=== PATIENT | male | born 1965 | race Caucasian/White ===

== ENCOUNTER 2020-01-03 09:27 | Inpatient (IN) ==
[2020-01-03 10:21] LABS: Basophils % 0.4 %; Eosinophils # 0.1 K/mcL (0.0-0.6); Eosinophils % 0.8 %; Hemoglobin 16.2 g/dL (12.9-16.9); Immature Granulocytes % 0.2 % (0-4); Lymphocytes # 2.7 K/mcL (0.6-4.6); Lymphocytes % 28.3 %; Mean Corpuscular HGB Conc 33.8 g/dL (31.6-35.5); Mean Corpuscular Hemoglobin 31.8 pg (28.0-33.3); Mean Corpuscular Volume 94.3 fL (83.0-100.0); Mean Platelet Volume 10.8 fL (9.4-12.4); Monocytes # 0.7 K/mcL (0.0-1.3); Monocytes % 7.4 %; Platelet Count 351 K/mcL (140-400); Red Blood Count 5.09 M/mcL (4.19-5.50); Red Cell Distribution Width 11.9 % (11.5-14.5); Segmented Neutrophils % 62.9 %; White Blood Count 9.6 K/mcL (4.3-11.1)
[2020-01-03 10:43] LABS: BUN/Creatinine Ratio 29 (6-26); Blood Urea Nitrogen 17 mg/dL (6-20); Calcium 9.9 mg/dL (8.6-10.3); Carbon Dioxide 31 mEq/L (23-29); Chloride 105 mEq/L (98-107); Glucose 124 mg/dL (70-105); Osmolality,Calculated 283 (280-300); Sodium 135 mEq/L (136-145); Troponin I < 0.03 ng/mL (< 0.04); eGFR For African Americans > 60 (> 60); eGFR For Non-African Americans > 60 (> 60)
[2020-01-03] MEDS ORDERED: Isovue-370 500 ML BOTTLE IVP ONE ×2 (10:43→16:15)
[2020-01-03] MEDS ORDERED: *HR* Heparin 5,000 UNIT/ML VIAL IVP PRN ×2 (11:56)
[2020-01-03] MEDS ORDERED: *HR* Heparin 5,000 UNIT/ML VIAL IVP ONE (11:56)
[2020-01-03 12:18] LABS: INR 1.1; Prothrombin Time 12.3 Seconds (9.4-12.1)
[2020-01-03 12:21] LABS: Activated Partial Thrombo Time 31.1 Seconds (26.0-36.0)
[2020-01-03] MEDS: Heparin 25,000 UNIT/250 ML D5W 25,000 UNIT/250 ML IV.SOLN IVC SCH (12:42)
[2020-01-03] MEDS ORDERED: *HR* HYDROcodone/Acet 5/325 mg TABLET PO PRN (14:02)
[2020-01-03] MEDS ORDERED: Naloxone 0.4 MG/ML INJ IVP PRN ×2 (14:02→14:03)
[2020-01-03] MEDS ORDERED: NON-FORMULARY MEDICATION 1 EACH EACH (Testosterone Cypionate [Depo-Testosterone] 200 MG) IM SCH (14:15)
[2020-01-03] MEDS ORDERED: 0.9 % Sodium Chloride 1,000 ML IVC SCH (14:15)
[2020-01-03] MEDS ORDERED: Morphine Sulfate 2 MG/ML SYRINGE IVP ONE (16:41)
[2020-01-03] MEDS ORDERED: *HR* OxyCODONE/APAP 5/325 TABLET PO PRN (16:45)
[2020-01-03 16:53] LABS: Carcinoembryonic Antigen 1.4 ng/mL (Less than 5.0)
[2020-01-03] MEDS: Sucralfate 1 GM TABLET PO SCH (20:01)
[2020-01-03] MEDS: Acetaminophen 325 MG TABLET PO PRN (23:36)
[2020-01-04 03:29] LABS: Basophils # 0.1 K/mcL (0.0-0.2); Basophils % 0.6 %; Eosinophils # 0.1 K/mcL (0.0-0.6); Eosinophils % 1.1 %; Hematocrit 47.5 % (37.5-50.1); Hemoglobin 15.8 g/dL (12.9-16.9); Immature Granulocytes % 0.5 % (0-4); Lymphocytes # 2.8 K/mcL (0.6-4.6); Lymphocytes % 27.1 %; Mean Corpuscular HGB Conc 33.3 g/dL (31.6-35.5); Mean Corpuscular Hemoglobin 32.8 pg (28.0-33.3); Mean Corpuscular Volume 98.5 fL (83.0-100.0); Mean Platelet Volume 10.7 fL (9.4-12.4); Monocytes # 0.8 K/mcL (0.0-1.3); Monocytes % 7.8 %; Neutrophils # 6.6 K/mcL (1.6-8.9); Platelet Count 271 K/mcL (140-400); Red Blood Count 4.82 M/mcL (4.19-5.50); Red Cell Distribution Width 12.1 % (11.5-14.5); Segmented Neutrophils % 62.9 %; White Blood Count 10.4 K/mcL (4.3-11.1)
[2020-01-04 03:50] LABS: BUN/Creatinine Ratio 28 (6-26); Blood Urea Nitrogen 18 mg/dL (6-20); Calcium 9.3 mg/dL (8.6-10.3); Carbon Dioxide 29 mEq/L (23-29); Chloride 103 mEq/L (98-107); Glucose 111 mg/dL (70-105); Osmolality,Calculated 291 (280-300); Phosphorous 3.8 mg/dL (2.7-4.5); Potassium 3.8 mEq/L (3.5-5.1); Sodium 139 mEq/L (136-145); eGFR For African Americans > 60 (> 60); eGFR For Non-African Americans > 60 (> 60)
[2020-01-04] MEDS: Multivit/Ca/Min/Fe/FA 1 TAB TABLET PO SCH (08:21)
[2020-01-04] MEDS: amLODIPine 5 MG TABLET PO SCH (08:21)
[2020-01-04] MEDS: Simethicone 80 MG TAB.CHEW PO SCH (08:22)
[2020-01-04] MEDS: Acetaminophen 325 MG TABLET PO PRN (08:22)
[2020-01-04] MEDS ORDERED: NON-FORMULARY MEDICATION 1 EACH EACH (Pantoprazole Sodium [Protonix] 40 MG) PO SCH (09:00)
[2020-01-04] MEDS ORDERED: *HR* Rivaroxaban 15 MG TABLET PO SCH ×2 (10:45→10:46)
[2020-01-04] MEDS: *HR* Enoxaparin 100 MG/ML SYRINGE SQ SCH ×2 (12:58→22:48)
[2020-01-04] MEDS: Psyllium 1 PACKET POWD.PACK PO SCH ×3 (12:58→22:47)
[2020-01-04] MEDS: Ondansetron 4 MG/2 ML VIAL IVP PRN (15:44)
[2020-01-04] MEDS ORDERED: hydrOXYzine pamoate 25 MG CAPSULE PO PRN (16:03)
[2020-01-04] MEDS ORDERED: Warfarin perPT PO PRN (18:00)
[2020-01-04] MEDS ORDERED: *HR* Warfarin 5 MG TABLET PO SCH (18:00)
[2020-01-04] MEDS ORDERED: *HR* Warfarin 5 MG TABLET PO ONE (18:00)
[2020-01-04] MEDS: Sucralfate 1 GM TABLET PO SCH (22:48)
[2020-01-05] MEDS ORDERED: Melatonin 3 MG TABLET PO ONE (03:07)
[2020-01-05 03:33] LABS: Basophils # 0.1 K/mcL (0.0-0.2); Basophils % 0.6 %; Eosinophils # 0.1 K/mcL (0.0-0.6); Eosinophils % 1.1 %; Hematocrit 47.5 % (37.5-50.1); Hemoglobin 15.9 g/dL (12.9-16.9); Immature Granulocytes % 0.3 % (0-4); Lymphocytes # 2.7 K/mcL (0.6-4.6); Lymphocytes % 29.9 %; Mean Corpuscular HGB Conc 33.5 g/dL (31.6-35.5); Mean Corpuscular Hemoglobin 32.9 pg (28.0-33.3); Mean Corpuscular Volume 98.1 fL (83.0-100.0); Mean Platelet Volume 11.3 fL (9.4-12.4); Monocytes # 0.8 K/mcL (0.0-1.3); Monocytes % 8.8 %; Neutrophils # 5.3 K/mcL (1.6-8.9); Platelet Count 300 K/mcL (140-400); Red Blood Count 4.84 M/mcL (4.19-5.50); Red Cell Distribution Width 12.1 % (11.5-14.5); Segmented Neutrophils % 59.3 %; White Blood Count 8.9 K/mcL (4.3-11.1)
[2020-01-05 03:41] LABS: INR 1.1; Prothrombin Time 12.6 Seconds (9.4-12.1)
[2020-01-05 03:50] LABS: BUN/Creatinine Ratio 24 (6-26); Blood Urea Nitrogen 14 mg/dL (6-20); Calcium 9.2 mg/dL (8.6-10.3); Carbon Dioxide 29 mEq/L (23-29); Chloride 102 mEq/L (98-107); Glucose 99 mg/dL (70-105); Osmolality,Calculated 291 (280-300); Potassium 3.6 mEq/L (3.5-5.1); Sodium 140 mEq/L (136-145); eGFR For African Americans > 60 (> 60); eGFR For Non-African Americans > 60 (> 60)
[2020-01-05] MEDS: Acetaminophen 325 MG TABLET PO PRN ×2 (06:42→11:52)
[2020-01-05] MEDS: Psyllium 1 PACKET POWD.PACK PO SCH ×3 (08:46→20:01)
[2020-01-05] MEDS: Simethicone 80 MG TAB.CHEW PO SCH (08:47)
[2020-01-05] MEDS: *HR* Enoxaparin 100 MG/ML SYRINGE SQ SCH ×2 (08:48→20:03)
[2020-01-05] MEDS: Multivit/Ca/Min/Fe/FA 1 TAB TABLET PO SCH (08:48)
[2020-01-05] MEDS: amLODIPine 5 MG TABLET PO SCH (08:48)
[2020-01-05] MEDS: atenoloL 50 MG TABLET PO SCH (08:48)
[2020-01-05] MEDS: Ondansetron 4 MG/2 ML VIAL IVP PRN (09:05)
[2020-01-05] MEDS: Sucralfate 1 GM TABLET PO PRN ×2 (11:53→17:25)
[2020-01-05] MEDS ORDERED: traZODone 50 MG TABLET PO PRN (16:31)
[2020-01-05] MEDS ORDERED: *HR* Warfarin 5 MG TABLET PO ONE (18:00)
[2020-01-05] MEDS: Heparin 25,000 UNIT/250 ML D5W 25,000 UNIT/250 ML IV.SOLN IVC SCH (19:52)
[2020-01-05] MEDS: Sucralfate 1 GM TABLET PO SCH (20:02)
[2020-01-05] MEDS ORDERED: amLODIPine 5 MG TABLET PO SCH (21:00)
[2020-01-05] MEDS ORDERED: Melatonin 3 MG TABLET PO SCH (21:00)
[2020-01-06 02:33] LABS: Basophils # 0.1 K/mcL (0.0-0.2); Basophils % 0.5 %; Eosinophils # 0.1 K/mcL (0.0-0.6); Eosinophils % 0.9 %; Hematocrit 47.4 % (37.5-50.1); Immature Granulocytes % 0.3 % (0-4); Lymphocytes # 2.4 K/mcL (0.6-4.6); Lymphocytes % 24.6 %; Mean Corpuscular HGB Conc 31.6 g/dL (31.6-35.5); Mean Corpuscular Hemoglobin 31.1 pg (28.0-33.3); Mean Corpuscular Volume 98.3 fL (83.0-100.0); Mean Platelet Volume 10.8 fL (9.4-12.4); Monocytes # 0.8 K/mcL (0.0-1.3); Monocytes % 8.1 %; Neutrophils # 6.3 K/mcL (1.6-8.9); Platelet Count 307 K/mcL (140-400); Red Blood Count 4.82 M/mcL (4.19-5.50); Red Cell Distribution Width 12.2 % (11.5-14.5); Segmented Neutrophils % 65.6 %; White Blood Count 9.7 K/mcL (4.3-11.1)
[2020-01-06 02:37] LABS: INR 1.2; Prothrombin Time 13.3 Seconds (9.4-12.1)
[2020-01-06 02:52] LABS: BUN/Creatinine Ratio 25 (6-26); Blood Urea Nitrogen 16 mg/dL (6-20); Calcium 9.4 mg/dL (8.6-10.3); Carbon Dioxide 32 mEq/L (23-29); Chloride 102 mEq/L (98-107); Glucose 94 mg/dL (70-105); Osmolality,Calculated 293 (280-300); Potassium 3.9 mEq/L (3.5-5.1); Sodium 141 mEq/L (136-145); eGFR For African Americans > 60 (> 60); eGFR For Non-African Americans > 60 (> 60)
[2020-01-06] MEDS: Acetaminophen 325 MG TABLET PO PRN (04:43)
[2020-01-06 07:55] VITALS: BP 144/88
[2020-01-06] MEDS: Psyllium 1 PACKET POWD.PACK PO SCH (11:04)
[2020-01-06] MEDS: *HR* Enoxaparin 100 MG/ML SYRINGE SQ SCH (11:22)
[2020-01-06] MEDS: Multivit/Ca/Min/Fe/FA 1 TAB TABLET PO SCH (11:23)
[2020-01-06] MEDS: Simethicone 80 MG TAB.CHEW PO SCH (11:23)
[2020-01-06] MEDS: atenoloL 50 MG TABLET PO SCH (11:24)
[2020-01-06] MEDS: Sucralfate 1 GM TABLET PO PRN (11:39)
[2020-01-06] MEDS ORDERED: hydrOXYzine pamoate 25 MG CAPSULE PO PRN (17:36)
[2020-01-06] MEDS ORDERED: *HR* Warfarin 7.5 MG TABLET PO ONE (18:00)
== END 2020-01-06 14:05 | disposition home or self-care (01) | DRG 175 ==
LOC: 3ANU 09:27 → EMEROOARM 09:27 → SUATTDRO 15:42 → 3ANU 16:10 → SUATTDRO 01-04 13:39
PROVIDERS: ADMIT Internal Medicine; ATTEND Internal Medicine

== ENCOUNTER 2020-01-18 06:01 | Inpatient (IN) ==
[2020-01-18] MEDS ORDERED: Ringers Solution, Lactated 1,000 ML IVC SCH (06:30)
[2020-01-18] MEDS ORDERED: *HR* FentaNYL (PF) 100 MCG/2 ML VIAL ONE (07:00)
[2020-01-18] MEDS ORDERED: *HR* Propofol 200 MG/20 ML VIAL IVP ONE ×4 (07:00→13:04)
[2020-01-18] MEDS ORDERED: *HR* Midazolam HCl 2 MG/2 ML VIAL ONE ×2 (07:00→12:11)
[2020-01-18] MEDS ORDERED: Ondansetron 4 MG/2 ML VIAL ONE (07:01)
[2020-01-18] MEDS ORDERED: Dexamethasone 4 MG/ML VIAL ONE (07:01)
[2020-01-18] MEDS ORDERED: *HR* Rocuronium Bromide 50 MG/5 ML VIAL ONE ×2 (07:01→08:57)
[2020-01-18] MEDS ORDERED: Lidocaine -MPF 2% 2 ML VIAL ONE (07:01)
[2020-01-18] MEDS ORDERED: Lidocaine HCL 4 ML Topical Solution (Laryng-O-Jet Kit Sterile Pak) TP ONE (07:01)
[2020-01-18] MEDS ORDERED: Bupivacaine/EPI 1:200k 0.5%PF 10 ML VIAL ONE (07:13)
[2020-01-18] MEDS ORDERED: Ondansetron 4 MG/2 ML VIAL IVP ONE (07:16)
[2020-01-18] MEDS ORDERED: *HR* OxyCODONE Immed Rel 5 MG TABLET PO PRN (07:16)
[2020-01-18] MEDS ORDERED: *HR* HYDROmorphone PF 0.5 MG/0.5 ML SYRINGE IVP PRN (07:16)
[2020-01-18] MEDS ORDERED: *HR* Remifentanil 1 MG VIAL IVP ONE ×2 (07:24→10:20)
[2020-01-18] MEDS ORDERED: cefOXitin 2,000 MG in Water for inj. (sterile) 20 ML IVP ONE (07:31)
[2020-01-18] MEDS ORDERED: *HR* PHENYLEPHRINE 1,000 MCG/10 ML SYRINGE IVP ONE ×2 (08:01→09:08)
[2020-01-18] MEDS ORDERED: Albumin Human 5% 0 GM/0 ML IV.SOLN ONE (09:32)
[2020-01-18] MEDS ORDERED: Albumin Human 5% 12.5 GM/250 ML IV.SOLN ONE ×2 (10:46→10:49)
[2020-01-18] MEDS ORDERED: *HR* Labetalol 20 MG/4 ML SYRINGE IVP ONE (12:55)
[2020-01-18] MEDS ORDERED: Naloxone 0.4 MG/ML INJ IVP PRN (14:42)
[2020-01-18] MEDS: *HR* FentaNYL (PF) 100 MCG/2 ML VIAL IVP PRN ×2 (15:37→18:53)
[2020-01-18] MEDS: 0.9 % Sodium Chloride 1,000 ML IVC SCH (15:37)
[2020-01-18] MEDS: cefOXitin 1,000 MG in 0.9 % Sodium Chloride Mini Bag 100 ML IVPB SCH ×2 (16:21→23:54)
[2020-01-18 16:40] LABS: Hematocrit 45.8 % (37.5-50.1); Mean Corpuscular HGB Conc 32.8 g/dL (31.6-35.5); Mean Corpuscular Hemoglobin 31.9 pg (28.0-33.3); Mean Corpuscular Volume 97.4 fL (83.0-100.0); Platelet Count 327 K/mcL (140-400); Red Cell Distribution Width 12.5 % (11.5-14.5); White Blood Count 19.2 K/mcL (4.3-11.1)
[2020-01-18] MEDS: Ketorolac 30 MG/ML VIAL IVP SCH ×2 (16:53→23:56)
[2020-01-18] MEDS: Acetaminophen IV 1,000 MG/100 ML INFUS..BTL IVPB SCH ×2 (17:01→23:58)
[2020-01-18 17:23] LABS: Alanine Aminotransferase 50 Units/L (7-52); Albumin 4.2 g/dL (3.5-5.7); Albumin/Globulin Ratio 2.1 (1.1-2.2); Alkaline Phosphatase 43 Units/L (34-104); Aspartate Amino Transferase 27 Units/L (13-39); BUN/Creatinine Ratio 28 (6-26); Bilirubin,Total 0.6 mg/dL (0.3-1.0); Blood Urea Nitrogen 21 mg/dL (6-20); Calcium 9.7 mg/dL (8.6-10.3); Carbon Dioxide 30 mEq/L (23-29); Chloride 100 mEq/L (98-107); Glucose 132 mg/dL (70-105); Osmolality,Calculated 293 (280-300); Potassium 4.6 mEq/L (3.5-5.1); Sodium 139 mEq/L (136-145); Total Protein 6.2 g/dL (6.4-8.9); Troponin I < 0.03 ng/mL (< 0.04); eGFR For African Americans > 60 (> 60); eGFR For Non-African Americans > 60 (> 60)
[2020-01-18] MEDS: *HR* OxyCODONE Immed Rel 5 MG TABLET PO PRN (19:29)
[2020-01-19] MEDS: *HR* OxyCODONE Immed Rel 5 MG TABLET PO PRN ×4 (02:24→19:33)
[2020-01-19 05:15] LABS: Basophils % 0.1 %; Eosinophils % 0.2 %; Hematocrit 40.8 % (37.5-50.1); Immature Granulocytes % 0.3 % (0-4); Lymphocytes # 2.6 K/mcL (0.6-4.6); Mean Corpuscular HGB Conc 31.9 g/dL (31.6-35.5); Mean Corpuscular Hemoglobin 31.5 pg (28.0-33.3); Mean Corpuscular Volume 98.8 fL (83.0-100.0); Mean Platelet Volume 11.3 fL (9.4-12.4); Monocytes # 1.3 K/mcL (0.0-1.3); Monocytes % 11.3 %; Neutrophils # 7.3 K/mcL (1.6-8.9); Platelet Count 280 K/mcL (140-400); Red Blood Count 4.13 M/mcL (4.19-5.50); Red Cell Distribution Width 12.7 % (11.5-14.5); Segmented Neutrophils % 65.1 %; White Blood Count 11.1 K/mcL (4.3-11.1)
[2020-01-19 05:33] LABS: BUN/Creatinine Ratio 36 (6-26); Blood Urea Nitrogen 21 mg/dL (6-20); Calcium 9.2 mg/dL (8.6-10.3); Carbon Dioxide 30 mEq/L (23-29); Chloride 104 mEq/L (98-107); Glucose 90 mg/dL (70-105); Osmolality,Calculated 293 (280-300); Potassium 4.1 mEq/L (3.5-5.1); Sodium 140 mEq/L (136-145); eGFR For African Americans > 60 (> 60); eGFR For Non-African Americans > 60 (> 60)
[2020-01-19] MEDS: Acetaminophen IV 1,000 MG/100 ML INFUS..BTL IVPB SCH ×4 (06:27→23:27)
[2020-01-19] MEDS: Ketorolac 30 MG/ML VIAL IVP SCH ×4 (06:27→23:26)
[2020-01-19] MEDS: cefOXitin 1,000 MG in 0.9 % Sodium Chloride Mini Bag 100 ML IVPB SCH (07:56)
[2020-01-19] MEDS ORDERED: *HR* Heparin 5,000 UNIT/ML VIAL IVP PRN ×2 (08:12)
[2020-01-19] MEDS ORDERED: *HR* Heparin 5,000 UNIT/ML VIAL IVP ONE (08:12)
[2020-01-19 08:58] LABS: Heparin anti-factor XA UFH 0.05 IU/mL (0.30-0.70)
[2020-01-19 09:01] LABS: INR 1.1
[2020-01-19 09:03] LABS: Hematocrit 42.3 % (37.5-50.1); Hemoglobin 13.8 g/dL (12.9-16.9); Mean Corpuscular HGB Conc 32.6 g/dL (31.6-35.5); Mean Corpuscular Hemoglobin 32.7 pg (28.0-33.3); Mean Corpuscular Volume 100.2 fL (83.0-100.0); Mean Platelet Volume 10.9 fL (9.4-12.4); Platelet Count 276 K/mcL (140-400); Red Blood Count 4.22 M/mcL (4.19-5.50); Red Cell Distribution Width 12.7 % (11.5-14.5); White Blood Count 11.7 K/mcL (4.3-11.1)
[2020-01-19] MEDS: Heparin 25,000 UNIT/250 ML D5W 25,000 UNIT/250 ML IV.SOLN IVC SCH (09:10)
[2020-01-19] MEDS ORDERED: *HR* Heparin 5,000 UNIT/ML VIAL SQ SCH (12:06)
[2020-01-19] MEDS: 0.9 % Sodium Chloride 1,000 ML IVC SCH ×2 (17:30)
[2020-01-19] MEDS: Ondansetron 4 MG/2 ML VIAL IVP PRN (19:33)
[2020-01-20 00:29] LABS: Hematocrit 39.3 % (37.5-50.1); Hemoglobin 12.5 g/dL (12.9-16.9); Mean Corpuscular HGB Conc 31.8 g/dL (31.6-35.5); Mean Corpuscular Hemoglobin 32.8 pg (28.0-33.3); Mean Corpuscular Volume 103.1 fL (83.0-100.0); Mean Platelet Volume 10.8 fL (9.4-12.4); Platelet Count 230 K/mcL (140-400); Red Blood Count 3.81 M/mcL (4.19-5.50); Red Cell Distribution Width 12.8 % (11.5-14.5); White Blood Count 12.5 K/mcL (4.3-11.1)
[2020-01-20] MEDS: *HR* OxyCODONE Immed Rel 5 MG TABLET PO PRN ×5 (00:32→21:19)
[2020-01-20 00:44] LABS: BUN/Creatinine Ratio 39 (6-26); Blood Urea Nitrogen 22 mg/dL (6-20); Calcium 9.1 mg/dL (8.6-10.3); Carbon Dioxide 29 mEq/L (23-29); Chloride 105 mEq/L (98-107); Glucose 95 mg/dL (70-105); Osmolality,Calculated 291 (280-300); Potassium 3.9 mEq/L (3.5-5.1); Sodium 139 mEq/L (136-145); eGFR For African Americans > 60 (> 60); eGFR For Non-African Americans > 60 (> 60)
[2020-01-20] MEDS: Ketorolac 30 MG/ML VIAL IVP SCH ×4 (05:10→23:21)
[2020-01-20] MEDS: 0.9 % Sodium Chloride 1,000 ML IVC SCH ×3 (05:10→17:24)
[2020-01-20] MEDS: Acetaminophen IV 1,000 MG/100 ML INFUS..BTL IVPB SCH ×4 (05:11→23:20)
[2020-01-20] MEDS: Heparin 25,000 UNIT/250 ML D5W 25,000 UNIT/250 ML IV.SOLN IVC SCH (08:15)
[2020-01-20] MEDS: amLODIPine 5 MG TABLET PO SCH ×2 (11:42→21:19)
[2020-01-20] MEDS: Piperacillin/Tazobactam 3.375 GM in 0.9 % Sodium Chloride Mini Bag 100 ML IVPB SCH (18:48)
[2020-01-20] MEDS ORDERED: *HR* LORazepam 0.5 MG TABLET PO ONE (22:57)
[2020-01-21] MEDS: *HR* OxyCODONE Immed Rel 5 MG TABLET PO PRN ×2 (03:51→19:57)
[2020-01-21] MEDS ORDERED: *HR* LORazepam 0.5 MG TABLET PO ONE (05:02)
[2020-01-21] MEDS: Ketorolac 30 MG/ML VIAL IVP SCH ×3 (05:15→17:45)
[2020-01-21] MEDS: 0.9 % Sodium Chloride 1,000 ML IVC SCH ×2 (05:16→19:00)
[2020-01-21] MEDS: Piperacillin/Tazobactam 3.375 GM in 0.9 % Sodium Chloride Mini Bag 100 ML IVPB SCH ×2 (05:16→17:45)
[2020-01-21] MEDS: Acetaminophen IV 1,000 MG/100 ML INFUS..BTL IVPB SCH ×4 (05:17→23:28)
[2020-01-21 05:29] LABS: Hematocrit 36.3 % (37.5-50.1); Hemoglobin 11.3 g/dL (12.9-16.9); Mean Corpuscular HGB Conc 31.1 g/dL (31.6-35.5); Mean Corpuscular Hemoglobin 31.8 pg (28.0-33.3); Mean Corpuscular Volume 102.3 fL (83.0-100.0); Mean Platelet Volume 11.2 fL (9.4-12.4); Platelet Count 295 K/mcL (140-400); Red Blood Count 3.55 M/mcL (4.19-5.50); Red Cell Distribution Width 12.7 % (11.5-14.5); White Blood Count 15.2 K/mcL (4.3-11.1)
[2020-01-21] MEDS: Heparin 25,000 UNIT/250 ML D5W 25,000 UNIT/250 ML IV.SOLN IVC SCH ×2 (05:37→21:47)
[2020-01-21 05:47] LABS: BUN/Creatinine Ratio 47 (6-26); Blood Urea Nitrogen 22 mg/dL (6-20); Calcium 9.7 mg/dL (8.6-10.3); Carbon Dioxide 31 mEq/L (23-29); Chloride 104 mEq/L (98-107); Glucose 108 mg/dL (70-105); Osmolality,Calculated 298 (280-300); Potassium 3.9 mEq/L (3.5-5.1); Sodium 142 mEq/L (136-145); eGFR For African Americans > 60 (> 60); eGFR For Non-African Americans > 60 (> 60)
[2020-01-21] MEDS ORDERED: Azithromycin 250 MG TABLET PO SCH (07:15)
[2020-01-21] MEDS ORDERED: *HR* FentaNYL (PF) 100 MCG/2 ML VIAL EP ONE (07:46)
[2020-01-21] MEDS: Dexmedetomidine HCl 400 MCG/100 ML MLS IVC SCH ×2 (08:33→22:03)
[2020-01-21] MEDS ORDERED: Isovue-370 500 ML BOTTLE PO ONE (09:12)
[2020-01-21] MEDS ORDERED: Lidocaine Viscous Oral Soln 15 ML SOLUTION ONE (09:36)
[2020-01-21] MEDS: atenoloL 50 MG TABLET PO SCH (11:55)
[2020-01-21] MEDS: Azithromycin 500 MG in 0.9 % Sodium Chloride 250 ML IVPB SCH (12:04)
[2020-01-21] MEDS ORDERED: Gadolinium Contrast Agent (WT Based) IV PRN (14:18)
[2020-01-21 14:21] LABS: Appearance of Body Fluid Cloudy (Clear); Volume of Body Fluid 10 mL
[2020-01-21] MEDS ORDERED: *HR* Heparin 5,000 UNIT/ML VIAL IVP PRN ×2 (19:45)
[2020-01-21] MEDS: amLODIPine 5 MG TABLET PO SCH (19:57)
[2020-01-22] MEDS: *HR* OxyCODONE Immed Rel 5 MG TABLET PO PRN ×4 (03:09→21:18)
[2020-01-22 05:09] LABS: Basophils % 0.4 %; Eosinophils # 0.1 K/mcL (0.0-0.6); Eosinophils % 1.6 %; Hematocrit 26.9 % (37.5-50.1); Immature Granulocytes % 0.2 % (0-4); Lymphocytes # 1.5 K/mcL (0.6-4.6); Lymphocytes % 18.4 %; Mean Corpuscular HGB Conc 31.6 g/dL (31.6-35.5); Mean Corpuscular Hemoglobin 32.9 pg (28.0-33.3); Mean Corpuscular Volume 104.3 fL (83.0-100.0); Mean Platelet Volume 11.1 fL (9.4-12.4); Monocytes # 0.6 K/mcL (0.0-1.3); Monocytes % 7.5 %; Neutrophils # 5.9 K/mcL (1.6-8.9); Platelet Count 208 K/mcL (140-400); Red Blood Count 2.58 M/mcL (4.19-5.50); Red Cell Distribution Width 12.8 % (11.5-14.5); Segmented Neutrophils % 71.9 %; White Blood Count 8.1 K/mcL (4.3-11.1)
[2020-01-22 05:10] LABS: Hemoglobin 8.5 g/dL (12.9-16.9)
[2020-01-22] MEDS: Acetaminophen IV 1,000 MG/100 ML INFUS..BTL IVPB SCH ×3 (05:27→17:58)
[2020-01-22 05:29] LABS: BUN/Creatinine Ratio 54 (6-26); Blood Urea Nitrogen 25 mg/dL (6-20); Calcium 8.6 mg/dL (8.6-10.3); Carbon Dioxide 31 mEq/L (23-29); Chloride 107 mEq/L (98-107); Glucose 103 mg/dL (70-105); Osmolality,Calculated 299 (280-300); Potassium 3.9 mEq/L (3.5-5.1); Sodium 142 mEq/L (136-145); eGFR For African Americans > 60 (> 60); eGFR For Non-African Americans > 60 (> 60)
[2020-01-22] MEDS: Piperacillin/Tazobactam 3.375 GM in 0.9 % Sodium Chloride Mini Bag 100 ML IVPB SCH ×2 (05:32→17:45)
[2020-01-22] MEDS: 0.9 % Sodium Chloride 1,000 ML IVC SCH ×2 (06:52→19:33)
[2020-01-22] MEDS: atenoloL 50 MG TABLET PO SCH (08:45)
[2020-01-22 11:13] LABS: Hematocrit 26.5 % (37.5-50.1); Hemoglobin 8.7 g/dL (12.9-16.9)
[2020-01-22] MEDS: Azithromycin 500 MG in 0.9 % Sodium Chloride 250 ML IVPB SCH (12:11)
[2020-01-22] MEDS: Heparin 25,000 UNIT/250 ML D5W 25,000 UNIT/250 ML IV.SOLN IVC SCH ×2 (14:50→20:02)
[2020-01-22] MEDS ORDERED: *HR* Warfarin 5 MG TABLET PO ONE (18:30)
[2020-01-22] MEDS: Dexmedetomidine HCl 400 MCG/100 ML MLS IVC SCH (19:32)
[2020-01-22] MEDS: amLODIPine 5 MG TABLET PO SCH (21:18)
[2020-01-23] MEDS: Acetaminophen IV 1,000 MG/100 ML INFUS..BTL IVPB SCH ×2 (00:46→05:21)
[2020-01-23] MEDS: Piperacillin/Tazobactam 3.375 GM in 0.9 % Sodium Chloride Mini Bag 100 ML IVPB SCH ×2 (05:21→17:26)
[2020-01-23 05:49] LABS: Basophils % 0.4 %; Eosinophils # 0.2 K/mcL (0.0-0.6); Eosinophils % 2.5 %; Hematocrit 24.3 % (37.5-50.1); Hemoglobin 7.8 g/dL (12.9-16.9); Immature Granulocytes % 0.4 % (0-4); Lymphocytes # 1.6 K/mcL (0.6-4.6); Lymphocytes % 23.8 %; Mean Corpuscular HGB Conc 32.1 g/dL (31.6-35.5); Mean Corpuscular Hemoglobin 33.1 pg (28.0-33.3); Monocytes # 0.6 K/mcL (0.0-1.3); Neutrophils # 4.5 K/mcL (1.6-8.9); Platelet Count 224 K/mcL (140-400); Red Blood Count 2.36 M/mcL (4.19-5.50); Red Cell Distribution Width 12.6 % (11.5-14.5); Segmented Neutrophils % 64.9 %; White Blood Count 6.9 K/mcL (4.3-11.1)
[2020-01-23 05:57] LABS: INR 1.2; Prothrombin Time 13.5 Seconds (9.4-12.1)
[2020-01-23 06:08] LABS: BUN/Creatinine Ratio 58 (6-26); Blood Urea Nitrogen 21 mg/dL (6-20); Calcium 8.3 mg/dL (8.6-10.3); Carbon Dioxide 32 mEq/L (23-29); Chloride 104 mEq/L (98-107); Glucose 99 mg/dL (70-105); Osmolality,Calculated 291 (280-300); Potassium 3.9 mEq/L (3.5-5.1); Sodium 139 mEq/L (136-145); eGFR For African Americans > 60 (> 60); eGFR For Non-African Americans > 60 (> 60)
[2020-01-23] MEDS: atenoloL 50 MG TABLET PO SCH (08:30)
[2020-01-23] MEDS: Dexmedetomidine HCl 400 MCG/100 ML MLS IVC SCH ×2 (08:31→22:09)
[2020-01-23] MEDS: 0.9 % Sodium Chloride 1,000 ML IVC SCH (08:41)
[2020-01-23] MEDS ORDERED: Furosemide 40 MG/4 ML VIAL ONE (08:46)
[2020-01-23] MEDS: Furosemide 40 MG/4 ML VIAL IVP ONE (08:50)
[2020-01-23] MEDS: Azithromycin 250 MG TABLET PO SCH (12:13)
[2020-01-23] MEDS: Heparin 25,000 UNIT/250 ML D5W 25,000 UNIT/250 ML IV.SOLN IVC SCH (15:49)
[2020-01-23 16:52] LABS: Hemoglobin 7.9 g/dL (12.9-16.9)
[2020-01-23] MEDS: *HR* OxyCODONE Immed Rel 5 MG TABLET PO PRN ×2 (17:32→20:32)
[2020-01-23] MEDS ORDERED: *HR* Warfarin 5 MG TABLET PO ONE (18:00)
[2020-01-23] MEDS ORDERED: Warfarin perPT PO PRN (18:00)
[2020-01-23] MEDS: amLODIPine 5 MG TABLET PO SCH (20:32)
[2020-01-24] MEDS: *HR* OxyCODONE Immed Rel 5 MG TABLET PO PRN ×4 (03:41→20:25)
[2020-01-24] MEDS: Heparin 25,000 UNIT/250 ML D5W 25,000 UNIT/250 ML IV.SOLN IVC SCH ×3 (05:01→12:30)
[2020-01-24] MEDS: Piperacillin/Tazobactam 3.375 GM in 0.9 % Sodium Chloride Mini Bag 100 ML IVPB SCH ×3 (05:46→19:32)
[2020-01-24 06:41] LABS: Basophils % 0.4 %; Eosinophils # 0.1 K/mcL (0.0-0.6); Eosinophils % 1.7 %; Hematocrit 20.6 % (37.5-50.1); Hemoglobin 6.9 g/dL (12.9-16.9); Immature Granulocytes % 1.3 % (0-4); Lymphocytes # 1.7 K/mcL (0.6-4.6); Lymphocytes % 22.9 %; Mean Corpuscular HGB Conc 33.5 g/dL (31.6-35.5); Mean Corpuscular Hemoglobin 33.3 pg (28.0-33.3); Mean Corpuscular Volume 99.5 fL (83.0-100.0); Mean Platelet Volume 10.7 fL (9.4-12.4); Monocytes # 0.7 K/mcL (0.0-1.3); Neutrophils # 4.9 K/mcL (1.6-8.9); Platelet Count 251 K/mcL (140-400); Red Blood Count 2.07 M/mcL (4.19-5.50); Red Cell Distribution Width 12.6 % (11.5-14.5); Segmented Neutrophils % 64.7 %; White Blood Count 7.5 K/mcL (4.3-11.1)
[2020-01-24 06:50] LABS: INR 2.2
[2020-01-24 07:03] LABS: BUN/Creatinine Ratio 51 (6-26); Blood Urea Nitrogen 21 mg/dL (6-20); Calcium 8.3 mg/dL (8.6-10.3); Carbon Dioxide 32 mEq/L (23-29); Chloride 99 mEq/L (98-107); Glucose 106 mg/dL (70-105); Osmolality,Calculated 287 (280-300); Potassium 3.8 mEq/L (3.5-5.1); Sodium 137 mEq/L (136-145); eGFR For African Americans > 60 (> 60); eGFR For Non-African Americans > 60 (> 60)
[2020-01-24] MEDS: atenoloL 50 MG TABLET PO SCH (07:59)
[2020-01-24] MEDS ORDERED: *HR* Heparin 5,000 UNIT/ML VIAL IVP PRN ×4 (08:56→18:00)
[2020-01-24] MEDS ORDERED: 0.9 % Sodium Chloride 250 ML ONE (09:55)
[2020-01-24] MEDS: Dexmedetomidine HCl 400 MCG/100 ML MLS IVC SCH (11:48)
[2020-01-24] MEDS: Sucralfate 1 GM TABLET PO SCH ×3 (11:49→20:26)
[2020-01-24] MEDS: Azithromycin 250 MG TABLET PO SCH (11:49)
[2020-01-24] MEDS: Furosemide 20 MG/2 ML VIAL IVP SCH ×2 (12:20→19:33)
[2020-01-24 15:42] LABS: Basophils % 0.4 %; Eosinophils # 0.1 K/mcL (0.0-0.6); Eosinophils % 1.7 %; Hematocrit 23.5 % (37.5-50.1); Hemoglobin 7.8 g/dL (12.9-16.9); Lymphocytes # 2.2 K/mcL (0.6-4.6); Lymphocytes % 29.1 %; Mean Corpuscular HGB Conc 33.2 g/dL (31.6-35.5); Mean Corpuscular Hemoglobin 32.5 pg (28.0-33.3); Mean Corpuscular Volume 97.9 fL (83.0-100.0); Mean Platelet Volume 11.2 fL (9.4-12.4); Monocytes # 0.8 K/mcL (0.0-1.3); Monocytes % 10.3 %; Neutrophils # 4.2 K/mcL (1.6-8.9); Platelet Count 253 K/mcL (140-400); Red Cell Distribution Width 13.2 % (11.5-14.5); Segmented Neutrophils % 56.5 %; White Blood Count 7.5 K/mcL (4.3-11.1)
[2020-01-24] MEDS: *HR* LORazepam 0.5 MG TABLET PO PRN ×2 (17:13→20:25)
[2020-01-24] MEDS: Pantoprazole 40 MG VIAL IVP SCH (17:13)
[2020-01-24] MEDS ORDERED: Heparin 25,000 UNIT/250 ML D5W 25,000 UNIT/250 ML IV.SOLN IVC SCH (18:00)
[2020-01-24] MEDS: amLODIPine 5 MG TABLET PO SCH (19:33)
[2020-01-25] MEDS: *HR* OxyCODONE Immed Rel 5 MG TABLET PO PRN ×4 (01:26→20:49)
[2020-01-25] MEDS: Dexmedetomidine HCl 400 MCG/100 ML MLS IVC SCH (01:27)
[2020-01-25] MEDS: *HR* LORazepam 0.5 MG TABLET PO PRN ×3 (02:16→11:15)
[2020-01-25 03:07] LABS: Basophils # 0.1 K/mcL (0.0-0.2); Basophils % 0.7 %; Eosinophils # 0.2 K/mcL (0.0-0.6); Eosinophils % 2.3 %; Hematocrit 21.3 % (37.5-50.1); Hemoglobin 7.1 g/dL (12.9-16.9); Immature Granulocytes % 4.1 % (0-4); Lymphocytes # 1.8 K/mcL (0.6-4.6); Lymphocytes % 26.7 %; Mean Corpuscular HGB Conc 33.3 g/dL (31.6-35.5); Mean Corpuscular Hemoglobin 32.3 pg (28.0-33.3); Mean Corpuscular Volume 96.8 fL (83.0-100.0); Mean Platelet Volume 10.6 fL (9.4-12.4); Monocytes # 0.7 K/mcL (0.0-1.3); Monocytes % 10.6 %; Neutrophils # 3.8 K/mcL (1.6-8.9); Nucleated Red Blood Cells 0.3 /100 WBC (0); Platelet Count 264 K/mcL (140-400); Red Cell Distribution Width 13.4 % (11.5-14.5); Segmented Neutrophils % 55.6 %; White Blood Count 6.9 K/mcL (4.3-11.1)
[2020-01-25 03:11] LABS: INR 2.3; Prothrombin Time 26.7 Seconds (9.4-12.1)
[2020-01-25 03:35] LABS: BUN/Creatinine Ratio 52 (6-26); Blood Urea Nitrogen 24 mg/dL (6-20); Calcium 8.7 mg/dL (8.6-10.3); Carbon Dioxide 31 mEq/L (23-29); Chloride 98 mEq/L (98-107); Glucose 106 mg/dL (70-105); Osmolality,Calculated 286 (280-300); Potassium 3.8 mEq/L (3.5-5.1); Sodium 136 mEq/L (136-145); eGFR For African Americans > 60 (> 60); eGFR For Non-African Americans > 60 (> 60)
[2020-01-25] MEDS: Pantoprazole 40 MG VIAL IVP SCH ×2 (06:12→16:49)
[2020-01-25] MEDS: Sucralfate 1 GM TABLET PO SCH ×4 (06:12→20:50)
[2020-01-25] MEDS ORDERED: Furosemide 40 MG/4 ML VIAL IVP ONE (07:19)
[2020-01-25] MEDS: atenoloL 50 MG TABLET PO SCH (07:58)
[2020-01-25] MEDS: Furosemide 40 MG/4 ML VIAL IVP ONE (11:15)
[2020-01-25] MEDS: Azithromycin 250 MG TABLET PO SCH (11:15)
[2020-01-25 20:16] LABS: Hematocrit 26.7 % (37.5-50.1); Hemoglobin 8.7 g/dL (12.9-16.9)
[2020-01-25 20:19] LABS: INR 1.6; Prothrombin Time 18.3 Seconds (9.4-12.1)
[2020-01-25] MEDS: Acetaminophen 325 MG TABLET PO PRN (20:49)
[2020-01-25] MEDS: amLODIPine 5 MG TABLET PO SCH (20:50)
[2020-01-26] MEDS: *HR* OxyCODONE Immed Rel 5 MG TABLET PO PRN ×5 (01:05→20:25)
[2020-01-26 06:14] LABS: Hematocrit 24.5 % (37.5-50.1); Mean Corpuscular HGB Conc 32.7 g/dL (31.6-35.5); Mean Corpuscular Hemoglobin 32.9 pg (28.0-33.3); Mean Corpuscular Volume 100.8 fL (83.0-100.0); Mean Platelet Volume 10.7 fL (9.4-12.4); Nucleated Red Blood Cells 0.4 /100 WBC (0); Platelet Count 396 K/mcL (140-400); Red Blood Count 2.43 M/mcL (4.19-5.50); Red Cell Distribution Width 13.7 % (11.5-14.5)
[2020-01-26 06:20] LABS: White Blood Count 13.3 K/mcL (4.3-11.1)
[2020-01-26 06:31] LABS: Alanine Aminotransferase 65 Units/L (7-52); Albumin 3.3 g/dL (3.5-5.7); Albumin/Globulin Ratio 1.5 (1.1-2.2); Alkaline Phosphatase 43 Units/L (34-104); Aspartate Amino Transferase 35 Units/L (13-39); BUN/Creatinine Ratio 53 (6-26); Bilirubin,Total 0.7 mg/dL (0.3-1.0); Blood Urea Nitrogen 21 mg/dL (6-20); Calcium 8.8 mg/dL (8.6-10.3); Carbon Dioxide 34 mEq/L (23-29); Chloride 98 mEq/L (98-107); Globulin 2.2 g/dL (2.4-3.5); Glucose 103 mg/dL (70-105); Magnesium 1.9 mg/dL (1.6-2.6); Osmolality,Calculated 287 (280-300); Phosphorous 3.8 mg/dL (2.7-4.5); Sodium 137 mEq/L (136-145); Total Protein 5.5 g/dL (6.4-8.9); eGFR For African Americans > 60 (> 60); eGFR For Non-African Americans > 60 (> 60)
[2020-01-26] MEDS: Pantoprazole 40 MG VIAL IVP SCH ×2 (06:33→17:02)
[2020-01-26 06:39] LABS: Lymphocytes # 2.9 K/mcL (0.6-4.6); Monocytes # 0.8 K/mcL (0.0-1.3); Neutrophils # 9.6 K/mcL (1.6-8.9); Polychromasia 1+ (Not Present)
[2020-01-26 06:40] LABS: Heparin anti-factor XA UFH < 0.04 IU/mL (0.30-0.70); INR 1.5; Platelet Estimate Normal (Normal); Prothrombin Time 16.7 Seconds (9.4-12.1)
[2020-01-26] MEDS: Acetaminophen 325 MG TABLET PO PRN ×2 (06:46→20:26)
[2020-01-26] MEDS: Heparin 25,000 UNIT/250 ML D5W 25,000 UNIT/250 ML IV.SOLN IVC SCH ×2 (07:44→10:37)
[2020-01-26] MEDS: Sucralfate 1 GM TABLET PO SCH ×4 (07:57→20:26)
[2020-01-26] MEDS: atenoloL 50 MG TABLET PO SCH (07:57)
[2020-01-26 15:25] LABS: Hemoglobin 8.8 g/dL (12.9-16.9)
[2020-01-26] MEDS: amLODIPine 5 MG TABLET PO SCH (20:26)
[2020-01-27] MEDS: *HR* OxyCODONE Immed Rel 5 MG TABLET PO PRN ×3 (01:30→22:12)
[2020-01-27] MEDS ORDERED: Simethicone 80 MG TAB.CHEW PO PRN (01:39)
[2020-01-27 04:01] LABS: Hematocrit 28.5 % (37.5-50.1); Hemoglobin 9.1 g/dL (12.9-16.9); Mean Corpuscular HGB Conc 31.9 g/dL (31.6-35.5); Mean Corpuscular Hemoglobin 31.9 pg (28.0-33.3); Mean Platelet Volume 9.9 fL (9.4-12.4); Nucleated Red Blood Cells 0.4 /100 WBC (0); Platelet Count 469 K/mcL (140-400); Red Blood Count 2.85 M/mcL (4.19-5.50); Red Cell Distribution Width 14.3 % (11.5-14.5)
[2020-01-27 04:05] LABS: INR 1.4; Prothrombin Time 15.7 Seconds (9.4-12.1)
[2020-01-27 04:16] LABS: Lymphocytes # 2.8 K/mcL (0.6-4.6); Monocytes # 0.6 K/mcL (0.0-1.3); Neutrophils # 10.4 K/mcL (1.6-8.9)
[2020-01-27 04:20] LABS: Alanine Aminotransferase 51 Units/L (7-52); Albumin 3.4 g/dL (3.5-5.7); Albumin/Globulin Ratio 1.5 (1.1-2.2); Alkaline Phosphatase 44 Units/L (34-104); Aspartate Amino Transferase 22 Units/L (13-39); BUN/Creatinine Ratio 52 (6-26); Bilirubin,Total 0.8 mg/dL (0.3-1.0); Blood Urea Nitrogen 22 mg/dL (6-20); Calcium 9.1 mg/dL (8.6-10.3); Carbon Dioxide 33 mEq/L (23-29); Chloride 95 mEq/L (98-107); Globulin 2.2 g/dL (2.4-3.5); Glucose 116 mg/dL (70-105); Magnesium 1.8 mg/dL (1.6-2.6); Osmolality,Calculated 288 (280-300); Phosphorous 3.7 mg/dL (2.7-4.5); Potassium 4.3 mEq/L (3.5-5.1); Sodium 137 mEq/L (136-145); Total Protein 5.6 g/dL (6.4-8.9); eGFR For African Americans > 60 (> 60); eGFR For Non-African Americans > 60 (> 60)
[2020-01-27] MEDS: Pantoprazole 40 MG VIAL IVP SCH (05:52)
[2020-01-27] MEDS: Heparin 25,000 UNIT/250 ML D5W 25,000 UNIT/250 ML IV.SOLN IVC SCH (07:30)
[2020-01-27] MEDS: Cefepime HCl 2,000 MG in Water for inj. (sterile) 20 ML IVP SCH ×3 (10:34→22:13)
[2020-01-27] MEDS: Simethicone 80 MG TAB.CHEW PO SCH ×3 (10:35→22:12)
[2020-01-27] MEDS: atenoloL 50 MG TABLET PO SCH (10:35)
[2020-01-27] MEDS: Sucralfate 1 GM TABLET PO SCH ×4 (11:45→22:13)
[2020-01-27] MEDS ORDERED: Ringers Solution, Lactated 1,000 ML ONE (12:45)
[2020-01-27] MEDS ORDERED: Ringers Solution, Lactated 1,000 ML IVC ONE (12:48)
[2020-01-27 13:16] LABS: Hematocrit 27.7 % (37.5-50.1)
[2020-01-27] MEDS ORDERED: 0.9 % Sodium Chloride 1,000 ML ONE (17:13)
[2020-01-27] MEDS: Ketorolac 15 MG/ML VIAL IVP SCH ×2 (17:20→22:12)
[2020-01-27] MEDS ORDERED: Isovue-370 500 ML BOTTLE IVP ONE (18:47)
[2020-01-27] MEDS: 0.9 % Sodium Chloride 1,000 ML IVC SCH (20:31)
[2020-01-27] MEDS: Dexmedetomidine HCl 400 MCG/100 ML MLS IVC SCH (20:31)
[2020-01-27] MEDS: amLODIPine 5 MG TABLET PO SCH (22:13)
[2020-01-28] MEDS: *HR* OxyCODONE Immed Rel 5 MG TABLET PO PRN (02:10)
[2020-01-28 03:37] LABS: VBG Ionized Calcium 1.23 mmol/L (1.15-1.35)
[2020-01-28 03:43] LABS: Basophils # 0.1 K/mcL (0.0-0.2); Basophils % 0.4 %; Eosinophils # 0.2 K/mcL (0.0-0.6); Eosinophils % 1.2 %; Hematocrit 23.1 % (37.5-50.1); Immature Granulocytes % 4.4 % (0-4); Lymphocytes # 2.9 K/mcL (0.6-4.6); Lymphocytes % 20.5 %; Mean Corpuscular Hemoglobin 32.7 pg (28.0-33.3); Mean Corpuscular Volume 102.2 fL (83.0-100.0); Monocytes # 1.4 K/mcL (0.0-1.3); Monocytes % 9.8 %; Nucleated Red Blood Cells 0.1 /100 WBC (0); Platelet Count 497 K/mcL (140-400); Red Blood Count 2.26 M/mcL (4.19-5.50); Red Cell Distribution Width 14.5 % (11.5-14.5); Segmented Neutrophils % 63.7 %; White Blood Count 14.2 K/mcL (4.3-11.1)
[2020-01-28 03:48] LABS: INR 1.3; Prothrombin Time 15.1 Seconds (9.4-12.1)
[2020-01-28 03:53] LABS: Hemoglobin 7.4 g/dL (12.9-16.9)
[2020-01-28 04:02] LABS: Alanine Aminotransferase 34 Units/L (7-52); Albumin 3.1 g/dL (3.5-5.7); Albumin/Globulin Ratio 1.6 (1.1-2.2); Alkaline Phosphatase 37 Units/L (34-104); Aspartate Amino Transferase 15 Units/L (13-39); BUN/Creatinine Ratio 47 (6-26); Bilirubin,Total 0.7 mg/dL (0.3-1.0); Blood Urea Nitrogen 22 mg/dL (6-20); Calcium 9.1 mg/dL (8.6-10.3); Carbon Dioxide 31 mEq/L (23-29); Chloride 99 mEq/L (98-107); Globulin 1.9 g/dL (2.4-3.5); Glucose 113 mg/dL (70-105); Magnesium 1.9 mg/dL (1.6-2.6); Osmolality,Calculated 288 (280-300); Phosphorous 3.8 mg/dL (2.7-4.5); Sodium 137 mEq/L (136-145); eGFR For African Americans > 60 (> 60); eGFR For Non-African Americans > 60 (> 60)
[2020-01-28] MEDS: Ketorolac 15 MG/ML VIAL IVP SCH ×5 (04:36→22:21)
[2020-01-28] MEDS: 0.9 % Sodium Chloride 1,000 ML IVC SCH (05:42)
[2020-01-28 07:38] LABS: Hematocrit 24.7 % (37.5-50.1); Hemoglobin 7.9 g/dL (12.9-16.9)
[2020-01-28] MEDS: Sucralfate 1 GM TABLET PO SCH ×4 (08:10→21:24)
[2020-01-28] MEDS: Simethicone 80 MG TAB.CHEW PO SCH ×3 (08:11→21:24)
[2020-01-28] MEDS: atenoloL 50 MG TABLET PO SCH (08:11)
[2020-01-28] MEDS: Ondansetron 4 MG/2 ML VIAL IVP PRN (08:53)
[2020-01-28] MEDS: Cefepime HCl 2,000 MG in Water for inj. (sterile) 20 ML IVP SCH ×3 (08:54→23:09)
[2020-01-28] MEDS: *HR* HYDROmorphone (PF) 1 MG/ML SYRINGE IVP PRN ×2 (08:54→13:01)
[2020-01-28] MEDS ORDERED: *HR* Dextrose 50 % in Water (Vial) 50 ML VIAL IVP PRN (10:38)
[2020-01-28] MEDS ORDERED: Dextrose Gel 15 GM/37.5 ML TUBE PO PRN ×2 (10:38)
[2020-01-28] MEDS ORDERED: D5% in Water 1,000 ML IVC PRN (10:38)
[2020-01-28 10:53] LABS: Triglycerides 104 mg/dL (< 150)
[2020-01-28] MEDS ORDERED: D10% in Water 500 ML IVC PRN (10:55)
[2020-01-28] MEDS: Insulin LISPRO 300 UNITS/3 ML VIAL SQ SCH ×4 (11:42→23:19)
[2020-01-28 15:03] LABS: Hematocrit 27.4 % (37.5-50.1); Hemoglobin 8.6 g/dL (12.9-16.9)
[2020-01-28] MEDS ORDERED: Metoclopramide 10 MG/2 ML VIAL IVP SCH (16:00)
[2020-01-28] MEDS ORDERED: Clinimix E 5%-15% SOLUTION 2,000 ML with MVI, adult with vitamin K 10 ML IVC SCH (17:00)
[2020-01-28] MEDS: Pantoprazole 40 MG VIAL IVP SCH (17:46)
[2020-01-28] MEDS: Metoclopramide 20 MG in 0.9 % Sodium Chloride 50 ML IVPB SCH ×2 (17:55→23:10)
[2020-01-28] MEDS: Heparin 25,000 UNIT/250 ML D5W 25,000 UNIT/250 ML IV.SOLN IVC SCH (17:57)
[2020-01-28] MEDS: Dexmedetomidine HCl 400 MCG/100 ML MLS IVC SCH (19:53)
[2020-01-28] MEDS: amLODIPine 5 MG TABLET PO SCH (21:24)
[2020-01-29] MEDS: *HR* HYDROmorphone (PF) 1 MG/ML SYRINGE IVP PRN (00:45)
[2020-01-29] MEDS: *HR* LORazepam 2 MG/ML VIAL IVP PRN ×2 (02:20→18:37)
[2020-01-29] MEDS: Ketorolac 15 MG/ML VIAL IVP SCH ×2 (03:01→20:14)
[2020-01-29] MEDS: Insulin LISPRO 300 UNITS/3 ML VIAL SQ SCH ×6 (03:09→23:33)
[2020-01-29 03:18] LABS: Hematocrit 24.1 % (37.5-50.1); Hemoglobin 7.7 g/dL (12.9-16.9)
[2020-01-29 03:36] LABS: BUN/Creatinine Ratio 45 (6-26); Blood Urea Nitrogen 20 mg/dL (6-20); Calcium 8.9 mg/dL (8.6-10.3); Carbon Dioxide 32 mEq/L (23-29); Chloride 101 mEq/L (98-107); Glucose 131 mg/dL (70-105); Magnesium 1.9 mg/dL (1.6-2.6); Osmolality,Calculated 288 (280-300); Phosphorous 2.7 mg/dL (2.7-4.5); Potassium 3.9 mEq/L (3.5-5.1); Sodium 137 mEq/L (136-145); eGFR For African Americans > 60 (> 60); eGFR For Non-African Americans > 60 (> 60)
[2020-01-29] MEDS: Pantoprazole 40 MG VIAL IVP SCH ×2 (06:25→17:27)
[2020-01-29] MEDS: Simethicone 80 MG TAB.CHEW PO SCH ×3 (08:07→20:07)
[2020-01-29] MEDS: Sucralfate 1 GM TABLET PO SCH (08:07)
[2020-01-29] MEDS: atenoloL 50 MG TABLET PO SCH (08:07)
[2020-01-29] MEDS: *HR* LORazepam 0.5 MG TABLET PO PRN (08:09)
[2020-01-29] MEDS: Cefepime HCl 2,000 MG in Water for inj. (sterile) 20 ML IVP SCH ×3 (08:13→23:19)
[2020-01-29] MEDS: Metoclopramide 20 MG in 0.9 % Sodium Chloride 50 ML IVPB SCH ×2 (08:13→17:26)
[2020-01-29] MEDS ORDERED: Furosemide 40 MG/4 ML VIAL IVP ONE (09:18)
[2020-01-29] MEDS: Dexmedetomidine HCl 400 MCG/100 ML MLS IVC SCH (11:23)
[2020-01-29 14:40] LABS: Basophils # 0.1 K/mcL (0.0-0.2); Basophils % 0.5 %; Eosinophils # 0.2 K/mcL (0.0-0.6); Eosinophils % 1.4 %; Hematocrit 25.5 % (37.5-50.1); Immature Granulocytes % 4.7 % (0-4); Lymphocytes # 2.2 K/mcL (0.6-4.6); Lymphocytes % 14.4 %; Mean Corpuscular HGB Conc 31.4 g/dL (31.6-35.5); Mean Corpuscular Hemoglobin 31.7 pg (28.0-33.3); Mean Corpuscular Volume 101.2 fL (83.0-100.0); Mean Platelet Volume 9.5 fL (9.4-12.4); Monocytes # 1.4 K/mcL (0.0-1.3); Monocytes % 9.3 %; Neutrophils # 10.7 K/mcL (1.6-8.9); Nucleated Red Blood Cells 0.2 /100 WBC (0); Platelet Count 540 K/mcL (140-400); Red Blood Count 2.52 M/mcL (4.19-5.50); Red Cell Distribution Width 14.8 % (11.5-14.5); Segmented Neutrophils % 69.7 %; White Blood Count 15.4 K/mcL (4.3-11.1)
[2020-01-29] MEDS ORDERED: Ipratropium/Albuterol Neb 3 ML IH PRN (15:07)
[2020-01-29] MEDS ORDERED: Clinimix E 5%-15% SOLUTION 2,000 ML with MVI, adult with vitamin K 10 ML IVC SCH (17:00)
[2020-01-29] MEDS: amLODIPine 5 MG TABLET PO SCH (20:07)
[2020-01-29] MEDS: Heparin 25,000 UNIT/250 ML D5W 25,000 UNIT/250 ML IV.SOLN IVC SCH (20:14)
[2020-01-29] MEDS: 0.9 % Sodium Chloride 1,000 ML IVC SCH (20:15)
[2020-01-30] MEDS: Insulin LISPRO 300 UNITS/3 ML VIAL SQ SCH ×5 (03:32→20:19)
[2020-01-30 03:45] LABS: Basophils # 0.1 K/mcL (0.0-0.2); Basophils % 0.6 %; Eosinophils # 0.2 K/mcL (0.0-0.6); Eosinophils % 1.5 %; Hematocrit 23.9 % (37.5-50.1); Hemoglobin 7.6 g/dL (12.9-16.9); Immature Granulocytes % 3.9 % (0-4); Lymphocytes % 15.9 %; Mean Corpuscular HGB Conc 31.8 g/dL (31.6-35.5); Mean Corpuscular Hemoglobin 32.5 pg (28.0-33.3); Mean Corpuscular Volume 102.1 fL (83.0-100.0); Mean Platelet Volume 9.6 fL (9.4-12.4); Monocytes # 1.1 K/mcL (0.0-1.3); Monocytes % 8.8 %; Neutrophils # 8.8 K/mcL (1.6-8.9); Nucleated Red Blood Cells 0.2 /100 WBC (0); Platelet Count 471 K/mcL (140-400); Red Blood Count 2.34 M/mcL (4.19-5.50); Red Cell Distribution Width 14.7 % (11.5-14.5); Segmented Neutrophils % 69.3 %; White Blood Count 12.7 K/mcL (4.3-11.1)
[2020-01-30 03:48] LABS: VBG Ionized Calcium 1.22 mmol/L (1.15-1.35)
[2020-01-30 04:03] LABS: BUN/Creatinine Ratio 55 (6-26); Blood Urea Nitrogen 21 mg/dL (6-20); Calcium 8.6 mg/dL (8.6-10.3); Carbon Dioxide 31 mEq/L (23-29); Chloride 100 mEq/L (98-107); Glucose 138 mg/dL (70-105); Magnesium 1.9 mg/dL (1.6-2.6); Osmolality,Calculated 287 (280-300); Potassium 3.6 mEq/L (3.5-5.1); Sodium 136 mEq/L (136-145); eGFR For African Americans > 60 (> 60); eGFR For Non-African Americans > 60 (> 60)
[2020-01-30] MEDS: Pantoprazole 40 MG VIAL IVP SCH ×2 (06:23→17:34)
[2020-01-30] MEDS: Dexmedetomidine HCl 400 MCG/100 ML MLS IVC SCH (06:24)
[2020-01-30] MEDS: Cefepime HCl 2,000 MG in Water for inj. (sterile) 20 ML IVP SCH ×2 (08:25→16:12)
[2020-01-30] MEDS: atenoloL 50 MG TABLET PO SCH (08:26)
[2020-01-30] MEDS: Simethicone 80 MG TAB.CHEW PO SCH ×3 (08:26→20:05)
[2020-01-30] MEDS: *HR* LORazepam 2 MG/ML VIAL IVP PRN ×2 (08:37→16:11)
[2020-01-30] MEDS ORDERED: Ipratropium/Albuterol Neb 3 ML IH PRN (16:37)
[2020-01-30] MEDS ORDERED: Naloxone 0.4 MG/ML INJ IVP PRN (16:37)
[2020-01-30] MEDS ORDERED: Clinimix E 5%-15% SOLUTION 2,000 ML with MVI, adult with vitamin K 10 ML IVC SCH ×3 (16:37→17:00)
[2020-01-30] MEDS ORDERED: Ondansetron 4 MG/2 ML VIAL IVP PRN (16:37)
[2020-01-30] MEDS ORDERED: D5% in Water 1,000 ML IVC PRN (16:37)
[2020-01-30] MEDS ORDERED: Dextrose Gel 15 GM/37.5 ML TUBE PO PRN ×2 (16:37)
[2020-01-30] MEDS ORDERED: *HR* Dextrose 50 % in Water (Vial) 50 ML VIAL IVP PRN (16:37)
[2020-01-30] MEDS ORDERED: D10% in Water 500 ML IVC PRN (16:37)
[2020-01-30 16:49] LABS: Hematocrit 25.1 % (37.5-50.1); Hemoglobin 7.8 g/dL (12.9-16.9)
[2020-01-30] MEDS: amLODIPine 5 MG TABLET PO SCH (20:05)
[2020-01-30] MEDS: *HR* LORazepam 0.5 MG TABLET PO PRN (23:59)
[2020-01-31] MEDS: Insulin LISPRO 300 UNITS/3 ML VIAL SQ SCH ×6 (00:15→19:51)
[2020-01-31] MEDS: Pantoprazole 40 MG VIAL IVP SCH ×2 (05:02→17:09)
[2020-01-31 05:54] LABS: Basophils # 0.1 K/mcL (0.0-0.2); Basophils % 0.8 %; Eosinophils # 0.2 K/mcL (0.0-0.6); Hematocrit 24.2 % (37.5-50.1); Hemoglobin 7.6 g/dL (12.9-16.9); Lymphocytes # 1.8 K/mcL (0.6-4.6); Lymphocytes % 17.3 %; Mean Corpuscular HGB Conc 31.4 g/dL (31.6-35.5); Mean Corpuscular Hemoglobin 32.2 pg (28.0-33.3); Mean Corpuscular Volume 102.5 fL (83.0-100.0); Mean Platelet Volume 9.6 fL (9.4-12.4); Monocytes # 0.9 K/mcL (0.0-1.3); Monocytes % 8.6 %; Neutrophils # 7.2 K/mcL (1.6-8.9); Platelet Count 407 K/mcL (140-400); Red Blood Count 2.36 M/mcL (4.19-5.50); Red Cell Distribution Width 14.7 % (11.5-14.5); Segmented Neutrophils % 68.3 %; White Blood Count 10.5 K/mcL (4.3-11.1)
[2020-01-31 06:09] LABS: Magnesium 1.9 mg/dL (1.6-2.6); Phosphorous 3.1 mg/dL (2.7-4.5)
[2020-01-31] MEDS: Cefepime HCl 2,000 MG in Water for inj. (sterile) 20 ML IVP SCH ×3 (08:00→15:38)
[2020-01-31] MEDS: Simethicone 80 MG TAB.CHEW PO SCH ×3 (08:00→19:56)
[2020-01-31] MEDS: atenoloL 50 MG TABLET PO SCH (08:02)
[2020-01-31] MEDS: *HR* LORazepam 0.5 MG TABLET PO PRN ×3 (08:27→22:33)
[2020-01-31 09:13] LABS: BUN/Creatinine Ratio 56 (6-26); Blood Urea Nitrogen 19 mg/dL (6-20); Calcium 8.4 mg/dL (8.6-10.3); Carbon Dioxide 32 mEq/L (23-29); Chloride 99 mEq/L (98-107); Glucose 98 mg/dL (70-105); Osmolality,Calculated 284 (280-300); Potassium 3.8 mEq/L (3.5-5.1); Sodium 136 mEq/L (136-145); eGFR For African Americans > 60 (> 60); eGFR For Non-African Americans > 60 (> 60)
[2020-01-31] MEDS ORDERED: Clinimix E 5%-20% SOLUTION 2,000 ML, Parenteral Amino Acid 10% 0 ML with MVI, adult wi... IVC SCH (17:00)
[2020-01-31] MEDS ORDERED: Clinimix E 5%-15% SOLUTION 2,000 ML with MVI, adult with vitamin K 10 ML, Trace Eleme... IVC SCH (17:00)
[2020-01-31] MEDS: Acetaminophen 325 MG TABLET PO PRN (19:57)
[2020-01-31] MEDS: amLODIPine 5 MG TABLET PO SCH (19:57)
[2020-02-01] MEDS: Cefepime HCl 2,000 MG in Water for inj. (sterile) 20 ML IVP SCH ×4 (00:25→23:20)
[2020-02-01] MEDS: Insulin LISPRO 300 UNITS/3 ML VIAL SQ SCH ×6 (01:30→20:06)
[2020-02-01 04:48] LABS: Basophils # 0.1 K/mcL (0.0-0.2); Basophils % 0.6 %; Eosinophils # 0.2 K/mcL (0.0-0.6); Eosinophils % 2.1 %; Hematocrit 23.8 % (37.5-50.1); Hemoglobin 7.4 g/dL (12.9-16.9); Immature Granulocytes % 3.1 % (0-4); Lymphocytes # 1.5 K/mcL (0.6-4.6); Lymphocytes % 15.2 %; Mean Corpuscular HGB Conc 31.1 g/dL (31.6-35.5); Mean Corpuscular Hemoglobin 32.3 pg (28.0-33.3); Mean Corpuscular Volume 103.9 fL (83.0-100.0); Mean Platelet Volume 9.9 fL (9.4-12.4); Monocytes # 0.7 K/mcL (0.0-1.3); Monocytes % 7.1 %; Neutrophils # 7.1 K/mcL (1.6-8.9); Platelet Count 393 K/mcL (140-400); Red Blood Count 2.29 M/mcL (4.19-5.50); Red Cell Distribution Width 14.7 % (11.5-14.5); Segmented Neutrophils % 71.9 %; White Blood Count 9.8 K/mcL (4.3-11.1)
[2020-02-01 05:08] LABS: % Iron Saturation 8 % (20-55); BUN/Creatinine Ratio 53 (6-26); Blood Urea Nitrogen 18 mg/dL (6-20); Calcium 8.4 mg/dL (8.6-10.3); Carbon Dioxide 34 mEq/L (23-29); Chloride 99 mEq/L (98-107); Glucose 119 mg/dL (70-105); Iron 26 mcg/dL (65-175); Osmolality,Calculated 285 (280-300); Phosphorous 3.1 mg/dL (2.7-4.5); Potassium 3.9 mEq/L (3.5-5.1); Sodium 136 mEq/L (136-145); Transferrin 221 mg/dL (203-362); eGFR For African Americans > 60 (> 60); eGFR For Non-African Americans > 60 (> 60)
[2020-02-01] MEDS: Pantoprazole 40 MG VIAL IVP SCH ×2 (05:17→17:31)
[2020-02-01] MEDS: atenoloL 50 MG TABLET PO SCH (08:28)
[2020-02-01] MEDS: Simethicone 80 MG TAB.CHEW PO SCH ×3 (08:29→20:06)
[2020-02-01] MEDS: *HR* LORazepam 0.5 MG TABLET PO PRN ×4 (11:30→23:21)
[2020-02-01] MEDS: Acetaminophen 325 MG TABLET PO PRN ×2 (14:32→20:11)
[2020-02-01 14:33] LABS: Ferritin 60 ng/mL (20-250)
[2020-02-01] MEDS ORDERED: Iron Sucrose Complex 400 MG in 0.9 % Sodium Chloride 250 ML IVPB ONE (15:23)
[2020-02-01] MEDS ORDERED: Clinimix E 5%-15% SOLUTION 2,000 ML with MVI, adult with vitamin K 10 ML, Trace Eleme... IVC SCH (17:00)
[2020-02-01] MEDS: amLODIPine 5 MG TABLET PO SCH (20:06)
[2020-02-02] MEDS: Insulin LISPRO 300 UNITS/3 ML VIAL SQ SCH ×7 (00:09→23:56)
[2020-02-02 03:46] LABS: Basophils # 0.1 K/mcL (0.0-0.2); Basophils % 0.6 %; Eosinophils # 0.2 K/mcL (0.0-0.6); Hematocrit 23.7 % (37.5-50.1); Hemoglobin 7.6 g/dL (12.9-16.9); Immature Granulocytes % 2.5 % (0-4); Lymphocytes # 1.8 K/mcL (0.6-4.6); Lymphocytes % 16.2 %; Mean Corpuscular HGB Conc 32.1 g/dL (31.6-35.5); Mean Corpuscular Hemoglobin 33.2 pg (28.0-33.3); Mean Corpuscular Volume 103.5 fL (83.0-100.0); Monocytes # 0.7 K/mcL (0.0-1.3); Monocytes % 6.5 %; Neutrophils # 7.8 K/mcL (1.6-8.9); Platelet Count 389 K/mcL (140-400); Red Blood Count 2.29 M/mcL (4.19-5.50); Red Cell Distribution Width 14.6 % (11.5-14.5); Segmented Neutrophils % 72.2 %; White Blood Count 10.8 K/mcL (4.3-11.1)
[2020-02-02 04:09] LABS: BUN/Creatinine Ratio 56 (6-26); Blood Urea Nitrogen 19 mg/dL (6-20); Calcium 8.9 mg/dL (8.6-10.3); Carbon Dioxide 34 mEq/L (23-29); Chloride 99 mEq/L (98-107); Glucose 119 mg/dL (70-105); Magnesium 2.1 mg/dL (1.6-2.6); Osmolality,Calculated 285 (280-300); Phosphorous 2.9 mg/dL (2.7-4.5); Potassium 4.1 mEq/L (3.5-5.1); Sodium 136 mEq/L (136-145); eGFR For African Americans > 60 (> 60); eGFR For Non-African Americans > 60 (> 60)
[2020-02-02] MEDS: Acetaminophen 325 MG TABLET PO PRN (05:21)
[2020-02-02] MEDS: *HR* LORazepam 0.5 MG TABLET PO PRN ×3 (05:21→19:45)
[2020-02-02] MEDS: Pantoprazole 40 MG VIAL IVP SCH ×2 (05:21→17:50)
[2020-02-02] MEDS: Simethicone 80 MG TAB.CHEW PO SCH ×3 (08:58→19:45)
[2020-02-02] MEDS: Cefepime HCl 2,000 MG in Water for inj. (sterile) 20 ML IVP SCH ×3 (08:58→23:55)
[2020-02-02] MEDS: atenoloL 50 MG TABLET PO SCH (08:58)
[2020-02-02] MEDS ORDERED: *HR* Heparin 5,000 UNIT/ML VIAL IVP PRN ×2 (11:18)
[2020-02-02] MEDS: Heparin 25,000 UNIT/250 ML D5W 25,000 UNIT/250 ML IV.SOLN IVC SCH (12:42)
[2020-02-02 13:04] LABS: Heparin anti-factor XA UFH < 0.04 IU/mL (0.30-0.70)
[2020-02-02 13:05] LABS: INR 1.1; Prothrombin Time 12.9 Seconds (9.4-12.1)
[2020-02-02] MEDS ORDERED: Clinimix E 5%-15% SOLUTION 2,000 ML with MVI, adult with vitamin K 10 ML IVC SCH (17:00)
[2020-02-02] MEDS ORDERED: Warfarin perPT PO PRN (18:00)
[2020-02-02] MEDS ORDERED: *HR* Warfarin 5 MG TABLET PO ONE (18:00)
[2020-02-02] MEDS: amLODIPine 5 MG TABLET PO SCH (19:45)
[2020-02-03 01:16] LABS: Basophils # 0.1 K/mcL (0.0-0.2); Basophils % 0.7 %; Eosinophils # 0.3 K/mcL (0.0-0.6); Eosinophils % 2.1 %; Hematocrit 24.4 % (37.5-50.1); Hemoglobin 7.5 g/dL (12.9-16.9); Immature Granulocytes % 2.3 % (0-4); Lymphocytes # 2.1 K/mcL (0.6-4.6); Lymphocytes % 15.4 %; Mean Corpuscular HGB Conc 30.7 g/dL (31.6-35.5); Mean Corpuscular Hemoglobin 31.6 pg (28.0-33.3); Mean Platelet Volume 10.2 fL (9.4-12.4); Monocytes % 7.3 %; Neutrophils # 9.8 K/mcL (1.6-8.9); Platelet Count 419 K/mcL (140-400); Red Blood Count 2.37 M/mcL (4.19-5.50); Red Cell Distribution Width 14.6 % (11.5-14.5); Segmented Neutrophils % 72.2 %; White Blood Count 13.5 K/mcL (4.3-11.1)
[2020-02-03 01:19] LABS: Heparin anti-factor XA UFH 0.5 IU/mL (0.30-0.70)
[2020-02-03 01:20] LABS: INR 1.2; Prothrombin Time 13.4 Seconds (9.4-12.1)
[2020-02-03 01:32] LABS: BUN/Creatinine Ratio 53 (6-26); Blood Urea Nitrogen 19 mg/dL (6-20); Calcium 8.7 mg/dL (8.6-10.3); Carbon Dioxide 33 mEq/L (23-29); Chloride 100 mEq/L (98-107); Glucose 90 mg/dL (70-105); Magnesium 2.1 mg/dL (1.6-2.6); Osmolality,Calculated 284 (280-300); Phosphorous 3.1 mg/dL (2.7-4.5); Potassium 4.3 mEq/L (3.5-5.1); Sodium 136 mEq/L (136-145); eGFR For African Americans > 60 (> 60); eGFR For Non-African Americans > 60 (> 60)
[2020-02-03] MEDS: Insulin LISPRO 300 UNITS/3 ML VIAL SQ SCH ×6 (04:22→23:58)
[2020-02-03] MEDS: Heparin 25,000 UNIT/250 ML D5W 25,000 UNIT/250 ML IV.SOLN IVC SCH ×2 (04:24→22:59)
[2020-02-03] MEDS: *HR* LORazepam 0.5 MG TABLET PO PRN ×3 (04:33→22:51)
[2020-02-03] MEDS: Pantoprazole 40 MG VIAL IVP SCH ×2 (06:14→17:53)
[2020-02-03] MEDS: atenoloL 50 MG TABLET PO SCH (08:24)
[2020-02-03] MEDS: Cefepime HCl 2,000 MG in Water for inj. (sterile) 20 ML IVP SCH ×2 (08:25→16:04)
[2020-02-03] MEDS: Simethicone 80 MG TAB.CHEW PO SCH ×3 (08:25→20:55)
[2020-02-03] MEDS ORDERED: Clinimix E 5%-15% SOLUTION 2,000 ML with MVI, adult with vitamin K 10 ML IVC SCH (17:00)
[2020-02-03] MEDS ORDERED: *HR* Warfarin 5 MG TABLET PO ONE (18:00)
[2020-02-03] MEDS: amLODIPine 5 MG TABLET PO SCH (20:55)
[2020-02-04] MEDS: Cefepime HCl 2,000 MG in Water for inj. (sterile) 20 ML IVP SCH ×3 (00:03→15:41)
[2020-02-04 01:35] LABS: Basophils # 0.1 K/mcL (0.0-0.2); Basophils % 0.5 %; Eosinophils # 0.3 K/mcL (0.0-0.6); Eosinophils % 1.9 %; Hematocrit 25.3 % (37.5-50.1); Hemoglobin 7.9 g/dL (12.9-16.9); Immature Granulocytes % 1.8 % (0-4); Lymphocytes # 2.2 K/mcL (0.6-4.6); Lymphocytes % 14.6 %; Mean Corpuscular HGB Conc 31.2 g/dL (31.6-35.5); Mean Corpuscular Hemoglobin 32.4 pg (28.0-33.3); Mean Corpuscular Volume 103.7 fL (83.0-100.0); Mean Platelet Volume 10.6 fL (9.4-12.4); Monocytes % 6.7 %; Platelet Count 442 K/mcL (140-400); Red Blood Count 2.44 M/mcL (4.19-5.50); Red Cell Distribution Width 14.7 % (11.5-14.5); Segmented Neutrophils % 74.5 %; White Blood Count 14.7 K/mcL (4.3-11.1)
[2020-02-04 01:54] LABS: BUN/Creatinine Ratio 58 (6-26); Blood Urea Nitrogen 21 mg/dL (6-20); Calcium 8.9 mg/dL (8.6-10.3); Carbon Dioxide 32 mEq/L (23-29); Chloride 100 mEq/L (98-107); Glucose 101 mg/dL (70-105); Magnesium 2.1 mg/dL (1.6-2.6); Osmolality,Calculated 287 (280-300); Phosphorous 3.4 mg/dL (2.7-4.5); Potassium 4.1 mEq/L (3.5-5.1); Sodium 137 mEq/L (136-145); eGFR For African Americans > 60 (> 60); eGFR For Non-African Americans > 60 (> 60)
[2020-02-04] MEDS: Insulin LISPRO 300 UNITS/3 ML VIAL SQ SCH ×5 (03:51→20:52)
[2020-02-04 04:04] LABS: INR 1.2; Prothrombin Time 13.7 Seconds (9.4-12.1)
[2020-02-04] MEDS: Pantoprazole 40 MG VIAL IVP SCH ×2 (05:27→17:25)
[2020-02-04] MEDS ORDERED: *HR* LORazepam 2 MG/ML VIAL IVP ONE ×2 (07:00→11:13)
[2020-02-04] MEDS: atenoloL 50 MG TABLET PO SCH (07:26)
[2020-02-04] MEDS: Simethicone 80 MG TAB.CHEW PO SCH ×3 (07:26→21:28)
[2020-02-04] MEDS: *HR* LORazepam 0.5 MG TABLET PO PRN (09:11)
[2020-02-04] MEDS ORDERED: *HR* Warfarin 7.5 MG TABLET PO ONE (18:00)
[2020-02-04] MEDS: Heparin 25,000 UNIT/250 ML D5W 25,000 UNIT/250 ML IV.SOLN IVC SCH (19:52)
[2020-02-04] MEDS: amLODIPine 5 MG TABLET PO SCH (21:29)
[2020-02-05] MEDS: *HR* LORazepam 0.5 MG TABLET PO PRN ×2 (00:17→19:40)
[2020-02-05] MEDS: Cefepime HCl 2,000 MG in Water for inj. (sterile) 20 ML IVP SCH ×4 (00:18→23:19)
[2020-02-05] MEDS: Acetaminophen 325 MG TABLET PO PRN ×2 (00:18→19:40)
[2020-02-05] MEDS: Insulin LISPRO 300 UNITS/3 ML VIAL SQ SCH ×6 (01:32→21:44)
[2020-02-05 01:53] LABS: Basophils % 0.4 %; Eosinophils # 0.3 K/mcL (0.0-0.6); Hematocrit 23.2 % (37.5-50.1); Hemoglobin 7.3 g/dL (12.9-16.9); Immature Granulocytes % 2.4 % (0-4); Lymphocytes # 2.4 K/mcL (0.6-4.6); Lymphocytes % 22.8 %; Mean Corpuscular HGB Conc 31.5 g/dL (31.6-35.5); Mean Corpuscular Hemoglobin 33.3 pg (28.0-33.3); Mean Corpuscular Volume 105.9 fL (83.0-100.0); Mean Platelet Volume 10.5 fL (9.4-12.4); Monocytes # 0.8 K/mcL (0.0-1.3); Monocytes % 7.7 %; Neutrophils # 6.8 K/mcL (1.6-8.9); Platelet Count 372 K/mcL (140-400); Red Blood Count 2.19 M/mcL (4.19-5.50); Red Cell Distribution Width 14.8 % (11.5-14.5); Segmented Neutrophils % 63.7 %; White Blood Count 10.6 K/mcL (4.3-11.1)
[2020-02-05 01:59] LABS: INR 3.4
[2020-02-05 02:01] LABS: Heparin anti-factor XA UFH > 2.00 IU/mL (0.30-0.70)
[2020-02-05 02:15] LABS: BUN/Creatinine Ratio 45 (6-26); Blood Urea Nitrogen 20 mg/dL (6-20); Calcium 8.7 mg/dL (8.6-10.3); Carbon Dioxide 29 mEq/L (23-29); Chloride 96 mEq/L (98-107); Glucose 223 mg/dL (70-105); Osmolality,Calculated 284 (280-300); Potassium 4.2 mEq/L (3.5-5.1); Sodium 132 mEq/L (136-145); eGFR For African Americans > 60 (> 60); eGFR For Non-African Americans > 60 (> 60)
[2020-02-05] MEDS: Pantoprazole 40 MG VIAL IVP SCH ×2 (05:56→16:41)
[2020-02-05] MEDS: Simethicone 80 MG TAB.CHEW PO SCH ×3 (07:11→19:41)
[2020-02-05] MEDS: atenoloL 50 MG TABLET PO SCH (07:11)
[2020-02-05] MEDS ORDERED: Iron Sucrose Complex 400 MG in 0.9 % Sodium Chloride 250 ML IVPB ONE (14:15)
[2020-02-05] MEDS: amLODIPine 5 MG TABLET PO SCH (19:41)
[2020-02-06] MEDS: Acetaminophen 325 MG TABLET PO PRN ×2 (01:47→07:46)
[2020-02-06] MEDS: Insulin LISPRO 300 UNITS/3 ML VIAL SQ SCH ×5 (01:47→16:47)
[2020-02-06] MEDS: *HR* LORazepam 0.5 MG TABLET PO PRN ×3 (01:47→19:50)
[2020-02-06] MEDS: Pantoprazole 40 MG VIAL IVP SCH ×2 (05:57→16:50)
[2020-02-06 06:47] LABS: Hemoglobin 7.8 g/dL (12.9-16.9); Mean Corpuscular HGB Conc 31.2 g/dL (31.6-35.5); Mean Corpuscular Hemoglobin 32.6 pg (28.0-33.3); Mean Corpuscular Volume 104.6 fL (83.0-100.0); Mean Platelet Volume 10.8 fL (9.4-12.4); Platelet Count 349 K/mcL (140-400); Red Blood Count 2.39 M/mcL (4.19-5.50); Red Cell Distribution Width 14.6 % (11.5-14.5); White Blood Count 7.1 K/mcL (4.3-11.1)
[2020-02-06 07:07] LABS: BUN/Creatinine Ratio 44 (6-26); Blood Urea Nitrogen 18 mg/dL (6-20); Calcium 8.9 mg/dL (8.6-10.3); Carbon Dioxide 31 mEq/L (23-29); Chloride 100 mEq/L (98-107); Glucose 88 mg/dL (70-105); Osmolality,Calculated 285 (280-300); Potassium 4.1 mEq/L (3.5-5.1); Sodium 137 mEq/L (136-145); eGFR For African Americans > 60 (> 60); eGFR For Non-African Americans > 60 (> 60)
[2020-02-06 07:31] LABS: Folate 20.8 ng/mL (3.0-16.0)
[2020-02-06] MEDS: Cefepime HCl 2,000 MG in Water for inj. (sterile) 20 ML IVP SCH ×2 (07:44→14:49)
[2020-02-06] MEDS: atenoloL 50 MG TABLET PO SCH (07:46)
[2020-02-06] MEDS: Simethicone 80 MG TAB.CHEW PO SCH ×3 (07:46→19:41)
[2020-02-06] MEDS: Furosemide 20 MG/2 ML VIAL IVP SCH ×2 (08:03→19:41)
[2020-02-06 11:12] LABS: INR 1.4; Prothrombin Time 15.7 Seconds (9.4-12.1)
[2020-02-06] MEDS: *HR* Enoxaparin 100 MG/ML SYRINGE SQ SCH (13:10)
[2020-02-06] MEDS ORDERED: *HR* Warfarin 7.5 MG TABLET PO ONE (18:00)
[2020-02-06] MEDS: amLODIPine 5 MG TABLET PO SCH (19:40)
[2020-02-06 21:45] LABS: ABG Base Excess 9 mEq/L (-2 to 3); ABG HCO3 35 mEq/L (21-27); ABG Oxygen Saturation 95 % (95-98); ABG PCO2 55 mmHg (35-45); ABG PH 7.41 pH Units (7.32-7.45); ABG PO2 79 mmHg (85-104); ABG TCO2 36 mEq/L (20-26)
[2020-02-07] MEDS: Cefepime HCl 2,000 MG in Water for inj. (sterile) 20 ML IVP SCH ×4 (00:01→22:58)
[2020-02-07] MEDS: Acetaminophen 325 MG TABLET PO PRN ×3 (00:04→20:03)
[2020-02-07] MEDS: *HR* LORazepam 0.5 MG TABLET PO PRN ×4 (03:57→20:04)
[2020-02-07 04:37] LABS: Basophils # 0.1 K/mcL (0.0-0.2); Basophils % 0.5 %; Eosinophils # 0.3 K/mcL (0.0-0.6); Eosinophils % 2.7 %; Immature Granulocytes % 1.2 % (0-4); Lymphocytes # 1.7 K/mcL (0.6-4.6); Lymphocytes % 19.1 %; Mean Corpuscular Volume 103.2 fL (83.0-100.0); Mean Platelet Volume 10.9 fL (9.4-12.4); Monocytes % 11.1 %; Platelet Count 364 K/mcL (140-400); Red Blood Count 2.81 M/mcL (4.19-5.50); Red Cell Distribution Width 14.7 % (11.5-14.5); Segmented Neutrophils % 65.4 %; White Blood Count 9.1 K/mcL (4.3-11.1)
[2020-02-07 05:03] LABS: BUN/Creatinine Ratio 41 (6-26); Blood Urea Nitrogen 19 mg/dL (6-20); Calcium 9.5 mg/dL (8.6-10.3); Carbon Dioxide 33 mEq/L (23-29); Chloride 97 mEq/L (98-107); Glucose 94 mg/dL (70-105); Osmolality,Calculated 286 (280-300); Potassium 3.9 mEq/L (3.5-5.1); Sodium 137 mEq/L (136-145); eGFR For African Americans > 60 (> 60); eGFR For Non-African Americans > 60 (> 60)
[2020-02-07] MEDS: Pantoprazole 40 MG VIAL IVP SCH ×2 (06:15→17:38)
[2020-02-07] MEDS: *HR* Enoxaparin 100 MG/ML SYRINGE SQ SCH ×2 (06:16→17:38)
[2020-02-07] MEDS: Simethicone 80 MG TAB.CHEW PO SCH ×3 (08:25→20:03)
[2020-02-07] MEDS: atenoloL 50 MG TABLET PO SCH (08:25)
[2020-02-07] MEDS: Furosemide 20 MG/2 ML VIAL IVP SCH (08:26)
[2020-02-07 09:27] LABS: INR 1.5; Prothrombin Time 17.6 Seconds (9.4-12.1)
[2020-02-07] MEDS ORDERED: *HR* Warfarin 7.5 MG TABLET PO ONE (18:00)
[2020-02-07] MEDS: amLODIPine 5 MG TABLET PO SCH (20:04)
[2020-02-08] MEDS: Acetaminophen 325 MG TABLET PO PRN ×3 (03:14→20:02)
[2020-02-08] MEDS: *HR* LORazepam 0.5 MG TABLET PO PRN ×2 (03:14→20:02)
[2020-02-08] MEDS: Pantoprazole 40 MG VIAL IVP SCH ×2 (06:29→18:06)
[2020-02-08] MEDS: *HR* Enoxaparin 100 MG/ML SYRINGE SQ SCH ×2 (06:29→18:06)
[2020-02-08 06:36] LABS: INR 1.7; Prothrombin Time 19.2 Seconds (9.4-12.1)
[2020-02-08] MEDS: atenoloL 50 MG TABLET PO SCH (07:58)
[2020-02-08] MEDS: Cefepime HCl 2,000 MG in Water for inj. (sterile) 20 ML IVP SCH ×3 (07:58→23:20)
[2020-02-08] MEDS: Simethicone 80 MG TAB.CHEW PO SCH ×3 (07:58→20:02)
[2020-02-08] MEDS ORDERED: *HR* Warfarin 7.5 MG TABLET PO ONE (18:00)
[2020-02-08] MEDS: amLODIPine 5 MG TABLET PO SCH (20:02)
[2020-02-09] MEDS: *HR* Enoxaparin 100 MG/ML SYRINGE SQ SCH (05:02)
[2020-02-09] MEDS: Pantoprazole 40 MG VIAL IVP SCH ×2 (05:02→17:40)
[2020-02-09] MEDS: Acetaminophen 325 MG TABLET PO PRN ×2 (05:16→20:33)
[2020-02-09 05:30] LABS: INR 2.1; Prothrombin Time 24.4 Seconds (9.4-12.1)
[2020-02-09] MEDS: Cefepime HCl 2,000 MG in Water for inj. (sterile) 20 ML IVP SCH (07:12)
[2020-02-09] MEDS: atenoloL 50 MG TABLET PO SCH (08:50)
[2020-02-09] MEDS: Simethicone 80 MG TAB.CHEW PO SCH ×3 (08:50→20:33)
[2020-02-09] MEDS ORDERED: *HR* Warfarin 7.5 MG TABLET PO ONE (18:00)
[2020-02-09] MEDS: amLODIPine 5 MG TABLET PO SCH (20:33)
[2020-02-09] MEDS: *HR* LORazepam 0.5 MG TABLET PO PRN (20:34)
[2020-02-10] MEDS: Acetaminophen 325 MG TABLET PO PRN (02:00)
[2020-02-10] MEDS: *HR* LORazepam 0.5 MG TABLET PO PRN (02:00)
[2020-02-10 04:33] VITALS: BP 146/93
== END 2020-02-10 02:40 | disposition other institution (70) | DRG 230 ==
LOC: SAMDAY 06:01 → SUATTDRO 07:41 → 3ANU 07:41 → ICNU 14:25 → 2NNU 01-30 17:11
PROVIDERS: ADMIT Surgery; ATTEND Internal Medicine